=== PATIENT | female | born 1975 | race Caucasian/White ===

== ENCOUNTER 2023-06-01 08:46 | Inpatient (IN) | payer OTHER ==
[~2023-06-01] VITALS: Ht 165.1 cm; Wt 88.5 kg
[2023-06-01] MEDS ORDERED: CEFAZOLIN SOD 2 GM in D5W 50 ML IV ONE (10:00)
[2023-06-01 10:20] LABS: BILIRUBIN,URINE NEGATIVE (NEGATIVE); BLOOD, URINE NEGATIVE (NEGATIVE); CLARITY/URINE CLEAR (CLEAR); COLOR,URINE YELLOW (YELLOW); GLUCOSE,URINE NEGATIVE (NEGATIVE); KETONES,URINE NEGATIVE (NEGATIVE); LEUKOCYTE ESTERASE ,URINE NEGATIVE (NEGATIVE); NITRITE, URINE NEGATIVE (NEGATIVE); PROTEIN URINE NEGATIVE (NEGATIVE); UROBILINOGEN,URINE 0.2 (0.2-1.0)
[2023-06-01 10:25] LABS: BASOPHILS % (AUTO) 0.3 % (0.0-2.0); EOSINOPHILS # (AUTO) 0.2 K/uL (0.0-0.4); EOSINOPHILS % (AUTO) 1.6 % (0.0-4.0); HEMATOCRIT 34.3 % (36-48); HEMOGLOBIN 11.4 g/dL (12.0-16.0); LYMPHOCYTES # (AUTO) 1.7 K/uL (1.0-5.5); MEAN CORPUSCULAR HEMOGLOBIN 28 pg (27-31); MEAN CORPUSCULAR HGB CONC 33 % (32-36); MEAN CORPUSCULAR VOLUME 84 fL (79.0-98.0); MONOCYTES # (AUTO) 0.5 K/uL (0.0-1.0); MONOCYTES % (AUTO) 4.5 % (1.7-9.3); NEUTROPHILS # (AUTO) 8.2 K/uL (1.8-7.7); NEUTROPHILS % (AUTO) 77.6 % (40.0-70.0); PLATELET COUNT (AUTO) 313 K/uL (130-430); RED BLOOD CELL COUNT(AUTO) 4.07 MIL/uL (4.2-6.2); WHITE BLOOD COUNT (AUTO) 10.6 K/uL (4.8-10.8)
[2023-06-01 10:42] LABS: ALBUMIN 3.4 g/dL (3.4-4.8); CALCIUM 9.3 mg/dL (8.4-11.0); CREATININE 0.77 mg/dL (0.55-1.30); POTASSIUM 3.5 mmol/L (3.5-5.1); TOTAL BILIRUBIN 0.8 mg/dL (0.0-1.0); TOTAL PROTEIN, SERUM 7.7 g/dL (6.4-8.3)
[2023-06-01 10:45] LABS: PROTHROMBIN TIME 9.9 SECS (9.5-12.5)
[2023-06-01] MEDS ORDERED: oxyCODONE HCL 5 MG TABLET PO PRN (11:00)
[2023-06-01] MEDS ORDERED: traMADol HCL HCL 50 MG TABLET (ULTRAM) PO PRN (11:00)
[2023-06-01] MEDS ORDERED: LORATADINE 10 MG TABLET PO PRN (11:00)
[2023-06-01] MEDS ORDERED: HYDROmorphone 1 MG/ML INJ. CARTRIDGE IVP PRN ×5 (11:00→14:15)
[2023-06-01] MEDS: ceFAZolin SODIUM 2 GM in D5W 50 ML IV SCH ×2 (11:15→22:17)
[2023-06-01] MEDS ORDERED: ONDANSETRON HCL 4 MG/2 ML VIAL IVP PRN ×2 (11:45→14:15)
[2023-06-01] MEDS: KETOROLAC TROMETHAMINE 10 MG TABLET (TORADOL) PO SCH ×2 (14:00→22:00)
[2023-06-01] MEDS: ACETAMINOPHEN 500 MG TABLET PO SCH ×2 (14:00→22:18)
[2023-06-01] MEDS ORDERED: METOCLOPRAMIDE HCL 10 MG/2 ML VIAL IVP PRN ×2 (14:15→15:30)
[2023-06-01] MEDS ORDERED: KETOROLAC TROMETHAMINE 60 MG/2 ML VIAL IM PRN (14:15)
[2023-06-01] MEDS ORDERED: MIDAZOLAM HCL 5 MG/5 ML VIAL IVP PRN (14:15)
[2023-06-01] MEDS ORDERED: MORPHINE SULFATE 10MG/10ML PF AMP SP SCH (14:15)
[2023-06-01] MEDS ORDERED: hydrALAZINE HCL 20 MG/ML VIAL IVP PRN (14:15)
[2023-06-01] MEDS ORDERED: NALOXONE HCL 0.4 MG/ML AMP (NARCAN) IVP PRN ×6 (14:15→15:30)
[2023-06-01] MEDS ORDERED: DIPHENHYDRAMINE INJ 50 MG/ML VIAL IM PRN (14:15)
[2023-06-01] MEDS ORDERED: LR 1,000 ML IV.SOLN IV ONE (15:30)
[2023-06-01] MEDS ORDERED: BUPIVACAINE /PF 0.75% 10 ML VIAL INJ ONE (15:30)
[2023-06-01] MEDS ORDERED: NS IRRIG SOLN 1000 ML IR ONE (15:30)
[2023-06-01] MEDS ORDERED: DIPHENHYDRAMINE HCL 25 MG CAPSULE PO PRN (15:30)
[2023-06-01] MEDS ORDERED: DEXAMETHASONE SOD PHOSPHATE 4 MG/ML VIAL ONE (15:30)
[2023-06-01] MEDS ORDERED: MORPHINE SULFATE 10MG/10ML PF AMP EP ONE (15:30)
[2023-06-01] MEDS ORDERED: BUPIVACAINE /PF 0.5% 30 ML VIAL ONE (15:30)
[2023-06-01] MEDS ORDERED: SEVOFLURANE 15 MIN GAS INH ONE (15:30)
[2023-06-01] MEDS ORDERED: ONDANSETRON HCL 4 MG/2 ML VIAL ONE (15:30)
[2023-06-01] MEDS ORDERED: PROPOFOL 200MG/ 20ML VIAL (DIPRIVAN) IV ONE (15:30)
[2023-06-01] MEDS ORDERED: BISACODYL 10 MG/SUPPOSITORY RC PRN (15:30)
[2023-06-01 16:30] VITALS: BP_SYST 153; PULSE 73; RESP 16; TEMP 97.2; O2SAT 98
[2023-06-01 16:58] VITALS: BP_SYST 146; PULSE 74; RESP 18; TEMP 97.8
[2023-06-01 19:50] VITALS: BP_SYST 166; PULSE 76; RESP 20; TEMP 96.8; O2SAT 99
[2023-06-01 21:48] VITALS: BP_SYST 146; PULSE 74; O2SAT 98
[2023-06-01] MEDS ORDERED: CEFAZOLIN 2 GM IVPB PREMIX 100 ML IV ONE (22:01)
[2023-06-01] MEDS: SENNOSIDES/DOCUSATE SODIUM 1 TAB TABLET(SENOKOT-S) PO SCH (22:17)
[2023-06-02 01:03] VITALS: BP_SYST 154; PULSE 84; RESP 18; TEMP 98; O2SAT 98
[2023-06-02] MEDS: ceFAZolin SODIUM 2 GM in D5W 50 ML IV SCH (02:27)
[2023-06-02] MEDS: oxyCODONE HCL 5 MG TABLET PO PRN ×4 (02:28→17:38)
[2023-06-02] MEDS: ACETAMINOPHEN 500 MG TABLET PO SCH ×3 (05:48→21:12)
[2023-06-02] MEDS: KETOROLAC TROMETHAMINE 10 MG TABLET (TORADOL) PO SCH (05:48)
[2023-06-02 07:57] VITALS: BP_SYST 149; PULSE 80; RESP 18; TEMP 97.4; O2SAT 98
[2023-06-02 08:00] VITALS: O2SAT 98
[2023-06-02] MEDS: SENNOSIDES/DOCUSATE SODIUM 1 TAB TABLET(SENOKOT-S) PO SCH ×2 (09:14→21:00)
[2023-06-02] MEDS: ASPIRIN 81 MG TAB.CHEW PO SCH ×2 (09:14→21:10)
[2023-06-02] MEDS ORDERED: ceFAZolin SODIUM 2 GM in D5W 50 ML IV ONE (09:15)
[2023-06-02 11:08] VITALS: BP_SYST 146; PULSE 67; RESP 16; TEMP 97.1; O2SAT 99
[2023-06-02 15:37] VITALS: BP_SYST 143; PULSE 78; RESP 16; TEMP 98.7; O2SAT 98
[2023-06-02 20:30] VITALS: BP_SYST 176; PULSE 86; RESP 18; TEMP 96.6; O2SAT 99
[2023-06-03 00:25] VITALS: BP_SYST 148; PULSE 96; RESP 18; TEMP 96.1; O2SAT 76
[2023-06-03] MEDS: oxyCODONE HCL 5 MG TABLET PO PRN ×3 (00:27→08:30)
[2023-06-03] MEDS: ACETAMINOPHEN 500 MG TABLET PO SCH (06:47)
[2023-06-03 07:57] VITALS: O2SAT 97
[2023-06-03 08:05] VITALS: BP_SYST 151; PULSE 74; RESP 18; TEMP 96.6; O2SAT 97
[2023-06-03] MEDS: ASPIRIN 81 MG TAB.CHEW PO SCH (08:30)
[2023-06-03] MEDS: SENNOSIDES/DOCUSATE SODIUM 1 TAB TABLET(SENOKOT-S) PO SCH (08:30)
[2023-06-03 09:55] VITALS: BP_SYST 159; PULSE 74; RESP 18; TEMP 97; O2SAT 97
== END 2023-06-03 10:38 | disposition home or self-care (01) | DRG 494 ==
LOC: SMU 08:46 → SDS 08:49 → EDSTATUS 12:00 → SMU 16:46
PROVIDERS: ADMIT Orthopaedic Surgery Sports Medicine; ATTEND Orthopaedic Surgery Sports Medicine
PROC: 0QSG06Z Reposition Right Tibia with Intramedullary Internal Fixation Device, Open Approach (ICD-10-PCS; principal; 2023-06-01 12:51)
DX: S82.51XA Displaced fracture of medial malleolus of right tibia, initial encounter for closed fracture (principal); X58.XXXA Exposure to other specified factors, initial encounter; Y93.89 Activity, other specified; Y92.89 Other specified places as the place of occurrence of the external cause; Y99.8 Other external cause status
CPT/HCPCS: 36415; 76000; 80053; 81001; 81003; 84702; 85025; 85610-TC; 85730-TC; 87081; 94010; 94760; 96379; 97116-GP; 97163-GP; 97530-GP; J0690; J1100; J1170; J2274; J2405; J2704; J3490; J7060; J7120